=== PATIENT | male | born 1955 | race Two or more races ===

== ENCOUNTER 2023-11-21 10:18 | Emergency (ER) | payer MEDICARE, MEDICAID ==
[~2023-11-21] VITALS: Ht 180.3 cm; Wt 63.5 kg
[~2023-11-21 10:18] MED LIST: CIPRO; VICODIN
[2023-11-21 10:29] VITALS: BP 130/80; PULSE 74; RESP 16; TEMP 98.8; O2SAT 99
[2023-11-21 11:20] LABS: CLARITY URINE CLEAR (CLEAR); COLOR URINE YELLOW (YELLOW); GLUCOSE URINE NEGATIVE (NEGATIVE); KETONES URINE NEGATIVE (NEGATIVE); LEUKOCYTE ESTERASE URINE NEGATIVE (NEGATIVE); NITRITE URINE NEGATIVE (NEGATIVE); OCCULT BLOOD URINE NEGATIVE (NEGATIVE); PROTEIN URINE NEGATIVE (NEGATIVE); SPECIFIC GRAVITY URINE 1.017 (1.005-1.030); UROBILINOGEN URINE 0.2 E.U./dL (0.2-1.0)
[2023-11-21] MEDS ORDERED: CLOT15CR5 TP (13:04)
== END 2023-11-21 13:43 | disposition home or self-care (01) ==
LOC: ER 10:18
DX: B37.2 Candidiasis of skin and nail (principal)
CPT/HCPCS: 76870; 81003; 93976; 99284

== ENCOUNTER 2023-12-07 17:45 | Emergency (ER) | payer MEDICARE, MEDICAID ==
[~2023-12-07] VITALS: Ht 180.3 cm; Wt 75.0 kg
[~2023-12-07 17:45] MED LIST changes: +CLOT15CR5 TP
[2023-12-07 17:57] VITALS: BP 154/85; PULSE 76; RESP 18; TEMP 98.5; O2SAT 98
== END 2023-12-08 00:31 | disposition left against medical advice (07) ==
LOC: ER 17:45
DX: N48.89 Other specified disorders of penis (principal); Z53.21 Procedure and treatment not carried out due to patient leaving prior to being seen by health care provider
CPT/HCPCS: 99281